=== PATIENT | male | born 1970 | race Two or more races ===

== ENCOUNTER → 2016-03-26 | Outpatient (CLI) | payer BC ==
[2016-03-26 16:44] LABS: Direct HDL 67 mg/dL (>40); TRIGLYCERIDES 73 mg/dL (<150)
[2016-03-26 16:55] LABS: DIRECT LDL 244 mg/dL (<100)
== END ==
LOC: OD 15:46
PROVIDERS: ATTEND Family Medicine
DX: Z83.49 Family history of other endocrine, nutritional and metabolic diseases (principal)
CPT/HCPCS: 36415; 80061

== ENCOUNTER 2016-06-11 15:36 | Emergency (ER) | payer BC ==
--- NOTE | 2016-06-11 16:02 | ER Document Report ---
ED Medical Screen (RME) - General Chief Complaint: Headache Stated Complaint: HEADACHE,DIZZY Notes: This 46-year-old male patient comes in from complaining of his head feeling heavy. 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 He takes Lamictal for seizure control. He was being seen at [facility] for his head symptoms, and recently had a noncontrasted CT scan. He reports they told him something didn't look right on the scan and they recommended a contrasted MRI. He actually has a contrasted MRI scheduled by his neurologist at [place], to be done in August of this year. He reports his doctors at [facility] told him to go to the emergency room if he got any worse. TRAVEL OUTSIDE OF THE [place] IN LAST 30 DAYS: No - Related Data Allergies/Adverse Reactions: No Known Allergies Allergy (Verified 06/11/16 15:40) Past Medical History Renal/ Medical History: Denies: Hx Peritoneal Dialysis Physical Exam - Vital signs Vitals: Temp Pulse Resp BP Pulse Ox 98.3 F 66 16 158/73 H 99 06/11/16 15:42 06/11/16 15:42 06/11/16 15:42 06/11/16 15:42 06/11/16 15:42 Course - Vital Signs Vital signs: Temp Pulse Resp BP Pulse Ox 98.3 F 66 16 158/73 H 99 06/11/16 15:42 06/11/16 15:42 06/11/16 15:42 06/11/16 15:42 06/11/16 15:42
[2016-06-11] MEDS ORDERED: ONDANSETRON 4 MG TAB.RAPDIS PO ONE (19:38)
[2016-06-11] MEDS ORDERED: DIAZEPAM 5 MG TABLET PO ONE (19:39)
--- NOTE | 2016-06-11 19:43 | ER Document Report ---
ED General - General Chief Complaint: Headache Stated Complaint: HEADACHE,DIZZY Time seen by provider: 19:25 Notes: Patient is a 46-year-old male that comes emergency department with chief complaint of difficulty sleeping, sensation of spinning when he lies down, and general sensation of pressure in his head and not feeling right. He states symptoms become worse later in the day. He states he has been having these since April, he had a noncontrast CT of the head by primary care, he has seen neurology and they have scheduled an MRI with contrast in August as a follow- up. Patient denies vomiting, injury, fever. He states that he had a lobectomy in the left temporal lobe for seizures in 2002, is on Lamictal, states he is taking an [id number] nausea medication as needed but it does not seem to help. TRAVEL OUTSIDE OF THE [place] IN LAST 30 DAYS: No - Related Data Allergies/Adverse Reactions: No Known Allergies Allergy (Verified 06/11/16 15:40) Past Medical History - General Information source: Patient - Social History Smoking Status: Never Smoker Frequency of alcohol use: None Drug Abuse: None Lives with: Family Family History: Reviewed & Not Pertinent Patient has suicidal ideation: No Patient has homicidal ideation: No Neurological Medical History: Reports: Hx Seizures Renal/ Medical History: Denies: Hx Peritoneal Dialysis - Immunizations Immunizations up to date: Yes Hx Diphtheria, Pertussis, Tetanus Vaccination: Yes Review of Systems - Review of Systems Constitutional: No symptoms reported EENT: No symptoms reported Cardiovascular: No symptoms reported Respiratory: No symptoms reported Gastrointestinal: No symptoms reported Genitourinary: No symptoms reported Male Genitourinary: No symptoms reported Musculoskeletal: No symptoms reported Skin: No symptoms reported Hematologic/Lymphatic: No symptoms reported Neurological/Psychological: See HPI Physical Exam - Vital signs Vitals: Temp Pulse Resp BP Pulse Ox 98.3 F 66 16 158/73 H 99 06/11/16 15:42 06/11/16 15:42 06/11/16 15:42 06/11/16 15:42 06/11/16 15:42 Interpretation: Normal - General General appearance: Appears well, Alert In distress: None - HEENT Head: Normocephalic, Atraumatic Eyes: Normal Conjunctiva: Normal Extraocular movements intact: Yes Eyelashes: Normal Pupils: PERRL Nasal: Normal Mouth/Lips: Normal Mucous membranes: Normal Pharynx: Normal Neck: Normal - Respiratory Respiratory status: No respiratory distress Chest status: Nontender Breath sounds: Normal Chest palpation: Normal - Cardiovascular Rhythm: Regular. No: Tachycardia Heart sounds: Normal auscultation, S1 appreciated, S2 appreciated Murmur: No - Abdominal Inspection: Normal Distension: No distension Bowel sounds: Normal Tenderness: Nontender Organomegaly: No organomegaly - Back Back: Normal, Nontender - Extremities General upper extremity: Normal inspection, Nontender, Normal color, Normal ROM , Normal temperature General lower extremity: Normal inspection, Nontender, Normal color, Normal ROM , Normal temperature, Normal weight bearing. 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 Patient presenting with no new symptoms, symptoms have been ongoing for months. Patient heart he has a workup scheduled by neurology. Patient is requesting symptom management because of difficulty sleeping with sensation of spinning at night, states that he was given vertical medicine which I believe is Antivert which he states did not help. I did provide him with some Valium, I did recommend that he follow-up with his neurologist closer if needed, discussed return precautions and symptoms, patient states understanding and agreement with plan. - Vital Signs Vital signs: Temp Pulse Resp BP Pulse Ox 98.3 F 56 L 16 133/81 H 98 06/11/16 15:42 06/11/16 20:02 06/11/16 20:02 06/11/16 20:02 06/11/16 20:02 Discharge - Discharge Clinical Impression: Nausea, Vertigo Condition: Stable Disposition: HOME, SELF-CARE Additional Instructions: Take the Zofran if needed for nausea as directed. I recommend taking the Valium especially in the evening to help the spinning sensation stop and help you sleep as a temporary fix Please contact your neurologist to see if you can get a closer follow-up because of your symptoms. Please return the emergency department for any concerning or worsening symptoms including headache, vomiting, etc. Prescriptions: Diazepam [Valium 5 mg Tablet] 1 - 2 tab PO QHS PRN #20 tablet PRN Reason: Ondansetron [Zofran Odt 4 mg Tablet] 1 - 2 tab PO Q4H PRN #30 tab.rapdis PRN Reason: For Nausea/Vomiting
[2016-06-11 20:03] VITALS: BP 133/81
== END 2016-06-11 20:03 | disposition home or self-care (01) ==
LOC: ER 15:36
DX: R51 Headache (principal); R42 Dizziness and giddiness
CPT/HCPCS: 99283; S0119

== ENCOUNTER 2017-09-25 07:32 | Emergency (ER) | payer BC ==
[2017-09-25 07:38] VITALS: BP 126/69
--- NOTE | 2017-09-25 09:03 | ER Document Report ---
ED General - General Chief Complaint: Redness of Eye Stated Complaint: EYE PAIN Time Seen by Provider: 09/25/17 08:16 Mode of Arrival: Ambulatory Information source: Patient TRAVEL OUTSIDE OF THE [place] 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 Tetanus is up-to-date. Reports pain is 6 out of 10, sharp and constant with photophobia. Patient does wear contacts but is not really any currently. Denies any loss of vision, blurred vision double vision. Has not tried any over -the-counter medications. Worse with time, nothing makes better. Denies any previous history of eye pain, denies history of diabetes hypertension. Denies fevers, chills, speech changes, LH, dizziness, syncope, headaches, wheezing, ST , URI, neck pain, weakness, bowel or bladder dysfunction, saddle anesthesia, numbness or tingling in bilateral upper or lower extremities equally, muscle paralysis, weakness in bilateral upper or lower extremities equally or rash. Denies IV drug use. - Related Data Allergies/Adverse Reactions: No Known Allergies Allergy (Verified 09/25/17 07:34) Past Medical History - General Information source: Patient - Social History Smoking Status: Never Smoker Chew tobacco use (# tins/day): No Frequency of alcohol use: None Drug Abuse: None Family History: Reviewed & Not Pertinent Patient has suicidal ideation: No Patient has homicidal ideation: No Neurological Medical History: Reports: Hx Seizures Renal/ Medical History: Denies: Hx Peritoneal Dialysis - Immunizations Immunizations up to date: Yes Hx Diphtheria, Pertussis, Tetanus Vaccination: Yes Review of Systems - Review of Systems Constitutional: No symptoms reported EENT: See HPI Cardiovascular: No symptoms reported Respiratory: No symptoms reported Gastrointestinal: No symptoms reported Genitourinary: No symptoms reported Male Genitourinary: No symptoms reported Musculoskeletal: No symptoms reported Skin: No symptoms reported Hematologic/Lymphatic: No symptoms reported Neurological/Psychological: No symptoms reported Physical Exam - Vital signs Vitals: Temp Pulse Resp BP Pulse Ox 98.6 F 63 12 126/69 H 97 09/25/17 07:37 09/25/17 07:37 09/25/17 07:37 09/25/17 07:37 09/25/17 07:37 - Notes Notes: PHYSICAL EXAMINATION: GENERAL: Well-appearing, well-nourished and in no acute distress. HEAD: Atraumatic, normocephalic. EYES: Pupils equal round and reactive to light, extraocular movements intact, sclera anicteric, conjunctiva are normal. Fluostain showed a corneal abrasion to right eye at 9' o'clock without dendrites or ulcer foreign bodies. PERRLA, normal accommodation, EMOI, peripheral vision bilaterally and equally. no exudates noted. red reflex wnl. fluostain on left negative for corneal abrasion , foreign body, dendrites, or ulcer. Normal fundi and optic discs. Corneas grossly clear. No nystagmus bilaterally. No ptosis, photophobia. visual acuity 20/20 L, 20/20 B, 20/30 R ENT: Nares patent, oropharynx clear without exudates. Moist mucous membranes. NECK: Normal range of motion, supple without lymphadenopathy LUNGS: Breath sounds clear to auscultation bilaterally and equal. No wheezes rales or rhonchi. HEART: Regular rate and rhythm without murmurs ABDOMEN: Soft, nontender, nondistended abdomen. No guarding, no rebound. No masses appreciated. Musculoskeletal: Normal range of motion, no pitting or edema. No cyanosis. NEUROLOGICAL: Cranial nerves grossly intact. Normal speech, normal gait. Normal sensory, motor exams PSYCH: Normal mood, normal affect. SKIN: Warm, Dry, normal turgor, no rashes or lesions noted. - HEENT Visual acuity- Right eye: 20/20 Visual acuity- Left eye: 20/30 Visual acuity- Both eyes: 20/20 Corrective lenses worn: Yes Course - Re-evaluation Re-evalutation: 09/25/17 09:03 47-year-old male afebrile vitals stable no distress presents for initiation A. Fluoroscopy staining reveals corneal abrasion. Will place patient on [place] as well as sterile ointments with follow-up with lsw within 24-38 hours. Warm compress to site 20 minutes on 20 minutes off several times a day, [id number] ibuprofen and Tylenol as needed for pain control. work note provided. After performing a Medical Screening Examination, I estimate there is LOW risk for a RETAINED CORNEAL or LID FOREIGN BODY, DEEP SPACE INFECTION ( e.g., ORBITAL CELLULITIS OR ABSCESS), ACUTE GLAUCOMA, PENETRATING GLOBE INJURY, RETINAL DETACHMENT, or MENINGITIS thus I consider the discharge disposition reasonable. I have reevaluated this patient multiple times and no significant life threatening changes are noted. Also, there is no evidence or peritonitis, sepsis, or toxicity. The patient and I have discussed the diagnosis and risks, and we agree with discharging home with outpatient follow-up with the understanding that symptoms and presentations can change. We also discussed returning to the Emergency Department immediately if new or worsening symptoms occur. We have discussed the symptoms which are most concerning (e.g., changing or worsening pain, vision changes, neck stiffness or fever) that necessitate immediate return. - Vital Signs Vital signs: Temp Pulse Resp BP Pulse Ox 98.6 F 63 12 126/69 H 97 09/25/17 07:37 09/25/17 07:37 09/25/17 07:37 09/25/17 07:37 09/25/17 07:37 Discharge - Discharge Clinical Impression: Right corneal abrasion Qualifiers: Encounter type: initial encounter Qualified Code(s): S05.01XA - Injury of conjunctiva and corneal abrasion without foreign body, right eye, initial encounter Condition: Stable Disposition: HOME, SELF-CARE Instructions: Antibiotic Therapy ([facility]), Conjunctivitis ([facility]), Corneal Abrasion ([facility]), Eyedrop Use ([facility]) Additional Instructions: You have a corneal abrasion. This should improve in the next several days. You should apply the eye drops to the affected eye 3 times daily. Follow-up with your eye doctor at your earliest ability. Return if you have decreased vision, worsening pain, increased drainage from the eye, you notice redness or puffiness around the eye, you develop a fever greater than 101F, or you have any other symptoms that are concerning to you. Up with lsw and primary care in the next 24-48 hours. Warm compress to site 20 minutes on 20 minutes off. do not wear contacts until you have completed antibiotic therapy. Return immediately for any new or worsening symptoms. Follow up with primary care provider, call tomorrow to make followup appointment. Prescriptions: Mineral Oil/Petrolatum,White [Systane Nighttime Eye Oint] 3.5 gm OP Q2HP PRN #1 oint...g. PRN Reason: Moxifloxacin HCl [Vigamox] 3 ml OP TID #7 drops Forms: Return to Work Referrals: THOMAS PEREZ DO [ACTIVE STAFF] - Follow up tomorrow BENTLEY JIMENES MD [COMMUNITY BASED STAFF] - Follow up as needed
== END 2017-09-25 09:28 | disposition home or self-care (01) ==
LOC: ER 07:32
DX: S05.01XA Injury of conjunctiva and corneal abrasion without foreign body, right eye, initial encounter (principal); H57.11 Ocular pain, right eye; X58.XXXA Exposure to other specified factors, initial encounter
CPT/HCPCS: 99282